=== PATIENT | female | born 1985 | race Caucasian/White ===

== ENCOUNTER 2018-02-07 12:05 | Inpatient (IN) ==
[2018-02-07] MEDS ORDERED: SODIUM CHLORIDE 1,000 ML IV STA ×2 (12:18→15:00)
--- NOTE | 2018-02-07 12:19 | ED.PDOC ---
General ED Provider: Dr. SHAISTA CALVO Chief Complaint: Weakness Stated Complaint: pt called faisal ro in the [facility] pt is homeless Time Seen by Physician: 12:10 (arrived denied suicidal, homocida ideation) Information Source: Patient Nursing and Triage Documentation Reviewed and Agree: Yes Reviewed sepsis parameters & appropriate labs ordered?: Yes System Inflammatory Response Syndrome: Not Applicable Sepsis Protocol: For patient's 13 years and over: Temp is 96.8 and below OR 101 and greater Pulse >90 BPM Resp >20/minute Acutely Altered Mental Status Are patient's symptoms suggestive of a new infection, such as: -Pneumonia -Skin, Soft Tissue -Endocarditis -UTI -Bone, Joint Infection -Implantable Device -Acute Abdominal Infection -Wound Infection -Meningitis -Blood Stream Catheter Infection -Unknown Psychological Complaint Exam - Psychiatric Complaint/Exam Patient Complains Of: Present: Depression (, homeless,) Onset/Duration: today Symptoms Are: Still present Timing: Constant Episodes Lasting: Weeks Initial Severity: Moderate Current Severity: Moderate Character: Present: Depressed, Fearful, Anxious, Frustrated (no job , no home, no family has 4 children who stay with others , 9th grade education) Aggravating: Reports: Recent stress (had a court day did not appear lived in the [facility] many tick bites ) Associated Signs And Symptoms: Reports: Sleep disturbance, Appetite change. Denies: Hostile, Confused, Hallucinating, Paranoid behavior Related History: Reports: Recent stressors (court case). Denies: Suicidal thoughts, Suicidal plan, Suicidal gestures, Homicidal plan, Homicidal gestures Completed Suicide Risk Factors: None Patient In Custody Of Police: No Social Withdrawal Present: Yes Social Isolation Present: Yes Prior Suicide Attempt: No Injury From Prior Suicide Attempt: No Related Surgical History: Reports: None Patient Uncooperative For Exam: No Mood: Present: Agitated, Anxious Appearance: Present: Clean Thought Process: Present: Logical Insight: Present: Good Danger To Others: No Patient Medically Stable For: Psych evaluation Differential Diagnoses: Depression Review of Systems - Review Of Systems Constitutional: Reports: Malaise, Weakness Eyes: Reports: No symptoms Ears, Nose, Mouth, Throat: Reports: No symptoms Respiratory: Reports: No symptoms Cardiac: Reports: No symptoms GI: Reports: No symptoms : Reports: No symptoms Musculoskeletal: Reports: No symptoms Skin: Reports: No symptoms Neurological: Reports: No symptoms Endocrine: Reports: No symptoms Hematologic/Lymphatic: Reports: No symptoms All Other Systems: Reviewed and Negative Past Medical History - Past Medical History Previously Healthy: Yes Endocrine: Reports: None Cardiovascular: Reports: None Respiratory: Reports: None Hematological: Reports: None Gastrointestinal: Reports: None Genitourinary: Reports: None Neuro/Psych: Reports: None Musculoskeletal: Reports: None Cancer: Reports: None - Surgical History General Surgical History: Reports: None - Family History Family History: Reports: None Physical Exam - Physical Exam Appearance: Well-appearing, No pain distress, Well-nourished Eyes: ALEISHA, EOMI, Conjunctiva clear ENT: Ears normal, Nose normal, Dry mucosa Respiratory: Airway patent, Breath sounds clear, Breath sounds equal, Respirations nonlabored Cardiovascular: RRR, Pulses normal, No rub, No murmur GI/: Soft, Nontender, No masses, Bowel sounds normal, No Organomegaly Musculoskeletal: Normal strength, ROM intact, No edema, No calf tenderness Skin: Warm, Dry (abrasion lower ext) Neurological: Sensation intact, Motor intact, Reflexes intact, Cranial nerves intact, Alert, Oriented Psychiatric: Affect appropriate, Mood appropriate Interpretation - Radiology Interpretation Radiology Interpretation By: Radiologist Radiology Results: No acute changes Re-Evaluation - Re-Evaluation Time of Re-Evaluation: 14:00 Status: Improved Vital Signs Stable: Yes Pain Level: 0 Appearance: NAD Lungs: Clear Skin: Warm and Dry Neuro: Alert and Oriented X3 CV: RRR - Re-Evaluation Time of Re-Evaluation: 16:59 Status: Improved Vital Signs Stable: Yes Pain Level: 0 Appearance: NAD Skin: Warm and Dry Neuro: Alert and Oriented X3 CV: RRR Physician Notification - Case Discussed Physician Notified: estephania Time of Notification: 17:01 Admit To: Inpatient Critical Care Note - Critical Care Note Total Time (mins): 0 Course - Course Hematology/Chemistry: 02/07/18 12:40 02/07/18 12:40 Orders, Labs, Meds: Lab Review 02/07/18 02/07/18 02/07/18 12:30 12:40 12:40 WBC 7.22 RBC 4.23 Hgb 13.4 Hct 39.8 MCV 94.1 MCH 31.7 H MCHC 33.7 RDW Coeff of Adelfo 12.6 Plt Count 316 Immature Gran % (Auto) 0.3 Neut % (Auto) 74.6 Lymph % (Auto) 19.3 [place] % (Auto) 4.0 Eos % (Auto) 1.0 Baso % (Auto) 0.8 Immature Gran # (Auto) 0.0 Neut # (Auto) 5.4 Lymph # (Auto) 1.4 [place] # (Auto) 0.3 L Eos # (Auto) 0.1 Baso # (Auto) 0.1 Puncture Site L rad O2 Saturation 99.0 ABG pH 7.430 ABG pCO2 35.1 ABG pO2 135.0 H ABG HCO3 23.3 ABG Total CO2 24 ABG Base Excess -1 Andres Test + FiO2 % 21.0 Sodium 140 Potassium 3.3 L Chloride 103 Carbon Dioxide 25 Anion Gap 15.3 BUN 21 H Creatinine 1.03 Estimated GFR (MDRD) 63.00 BUN/Creatinine Ratio 20.38 Glucose 84 Lactic Acid Calcium 9.5 Total Bilirubin 1.2 AST 22 ALT 24 Alkaline Phosphatase 83 Total Creatine Kinase CK-MB (CK-2) CK-MB (CK-2) % Troponin I Total Protein 7.0 Albumin 3.6 Globulin 3.4 Albumin/Globulin Ratio 1.06 Procalcitonin Serum , Qual 02/07/18 02/07/18 02/07/18 12:40 12:40 12:40 WBC RBC Hgb Hct MCV MCH MCHC RDW Coeff of Adelfo Plt Count Immature Gran % (Auto) Neut % (Auto) Lymph % (Auto) [place] % (Auto) Eos % (Auto) Baso % (Auto) Immature Gran # (Auto) Neut # (Auto) Lymph # (Auto) [place] # (Auto) Eos # (Auto) Baso # (Auto) Puncture Site O2 Saturation ABG pH ABG pCO2 ABG pO2 ABG HCO3 ABG Total CO2 ABG Base Excess Andres Test FiO2 % Sodium Potassium Chloride Carbon Dioxide Anion Gap BUN Creatinine Estimated GFR (MDRD) BUN/Creatinine Ratio Glucose Lactic Acid 19.5 Calcium Total Bilirubin AST ALT Alkaline Phosphatase Total Creatine Kinase CK-MB (CK-2) CK-MB (CK-2) % Troponin I Total Protein Albumin Globulin Albumin/Globulin Ratio Procalcitonin < 0.05 Serum , Qual Negative 02/07/18 12:40 WBC RBC Hgb Hct MCV MCH MCHC RDW Coeff of Adelfo Plt Count Immature Gran % (Auto) Neut % (Auto) Lymph % (Auto) [place] % (Auto) Eos % (Auto) Baso % (Auto) Immature Gran # (Auto) Neut # (Auto) Lymph # (Auto) [place] # (Auto) Eos # (Auto) Baso # (Auto) Puncture Site O2 Saturation ABG pH ABG pCO2 ABG pO2 ABG HCO3 ABG Total CO2 ABG Base Excess Andres Test FiO2 % Sodium Potassium Chloride Carbon Dioxide Anion Gap BUN Creatinine Estimated GFR (MDRD) BUN/Creatinine Ratio Glucose Lactic Acid Calcium Total Bilirubin AST ALT Alkaline Phosphatase Total Creatine Kinase 164 CK-MB (CK-2) 6.6 H* CK-MB (CK-2) % 4.96881 Troponin I < 0.0100 Total Protein Albumin Globulin Albumin/Globulin Ratio Procalcitonin Serum , Qual Orders Category Date Time Status ABG DRAW REQUEST Stat CARDIO 02/07/18 12:17 Completed EKG-(ED ONLY) Stat CARDIO 02/07/18 12:18 Completed NPO REMINDER: IMAGING ONCE CARE 02/07/18 15:22 Active ED IV/MEDIPORT/POWERPORT .ONCE EMERGENCY 02/07/18 12:18 Active Mental Health Consult [ED MENTAL HEALTH CONSULT] .ONCE EMERGENCY 02/07/18 12: 18 Active ABG Stat LAB 02/07/18 12:30 Completed BLOOD CULTURE (ED ONLY) Stat LAB 02/07/18 12:40 Received CBC W/ AUTO DIFF Stat LAB 02/07/18 12:40 Completed COMPREHENSIVE METABOLIC PANEL Stat LAB 02/07/18 12:40 Completed CREATINE KINASE Stat LAB 02/07/18 12:40 Completed EHRLICHIA DNA, PCR Stat LAB 02/07/18 12:40 Received LACTIC ACID Stat LAB 02/07/18 12:40 Completed LYME, WESTERN BLOT, SERUM Stat LAB 02/07/18 12:40 Received PROCALCITONIN Stat LAB 02/07/18 12:40 Completed SCOOTER MTN SPOTTED FEVER,IgG Stat LAB 02/07/18 12:40 Received SCOOTER MTN SPOTTED FEVER,IgM Stat LAB 02/07/18 12:54 Received SERUM Stat LAB 02/07/18 12:40 Completed TROPONIN I Stat LAB 02/07/18 12:40 Completed URINE DRUG SCREEN (RAPID FOR ED) [DRUG SCREEN, URINE, LAB 02/07/18 12:12 Uncollected RAPID] Stat URINE Stat LAB 02/07/18 12:11 Uncollected 0.9 % Sodium Chloride [Saline Flush] MEDS 02/07/18 12:18 Active 1 syr IVF PRN PRN Sodium Chloride 0.9% [Sodium Chloride] 1,000 ml MEDS 02/07/18 12:18 Discontinued IV BOLUS Sodium Chloride 0.9% [Sodium Chloride] 1,000 ml MEDS 02/07/18 15:[address] CHEST PE PROTOCOL Stat RADS 02/07/18 15:[address] HEAD W/O CONTRAST Stat RADS 02/07/18 15:13 Completed Medications Generic Name Dose Route Start Last Admin Trade Name Freq PRN Reason Stop Dose Admin Sodium Chloride 1 syr 02/07/18 12:18 02/07/18 12:58 Saline Flush IVF 1 syr PRN PRN Administration To flush IV Discontinued Medications Generic Name Dose Route Start Last Admin Trade Name Freq PRN Reason Stop Dose Admin Sodium Chloride 1,000 mls @ 1,000 mls/hr 02/07/18 12:18 02/07/18 12:58 Sodium Chloride IV 02/07/18 13:17 1,000 mls/hr BOLUS STA Administration Sodium Chloride 1,000 mls @ 1,000 mls/hr 02/07/18 15:00 02/07/18 15:00 Sodium Chloride IV 02/07/18 15:59 1,000 mls/hr BOLUS STA Administration Vital Signs: Temp Pulse Resp BP Pulse Ox 02/07/18 12:06 98 F 99 H 16 80/49 L 100 Departure - Departure Time of Disposition: 17:01 Disposition: ADMITTED INPATIENT Discharge Problem: Depression, Dehydration Instructions: Dehydration (ED) Condition: Good Pt referred to PMD for follow-up: Yes IPMP verified?: No Additional Instructions: Please call your Family Physician as soon as possible to schedule a follow-up appointment. Allergies/Adverse Reactions: Allergies No Known Allergies Allergy (Unverified 02/07/18 12:22) Home Medications: Ambulatory Orders 1 [No Reported Medications] 02/07/18 Disposition Discussed With: Patient Discharge Problem: Depression Qualifiers: Depression Type: unspecified Qualified Code(s): F32.9 - Major depressive disorder, single episode, unspecified
[2018-02-07] MEDS ORDERED: ATIVAN IM STA (13:00)
[2018-02-07] MEDS ORDERED: HALDOL IM STA (13:01)
--- NOTE | 2018-02-07 16:31 | CT ---
EXAM: CT BRAIN HISTORY: Headache TECHNIQUE: CT brain without intravenous contrast. 5-mm axial sections with Reformations. COMPARISON: None FINDINGS: Brain is unremarkable without evidence of hemorrhage or large vessel distribution recent ischemic in farction. There is no suggestion of acute hydrocephalus or subdural fluid collection. No mass or ma ss effect. Cranium is within normal limits. Mastoid processes are aerated. The visualized paranasal sinuses a re clear. IMPRESSION: No acute intracranial process.
--- NOTE | 2018-02-07 16:36 | CT ---
EXAM: CT Angiogram Chest. HISTORY: Chest pain. COMPARISON: None available. TECHNIQUE: Multiple axial images of the chest were obtained following intravenous administration of 100 mL of Omnipaque 350, low osmolar. Images were reformatted in the sagittal and coronal plane. 3- D and maximum intensity projection reformatted images were created on an independent workstation. FINDINGS: No lymphadenopathy detected. Heart size is normal. No pericardial effusion detected. No pulmonary arterial filling defects are seen. Subtle bronchial thickening, ground-glass nodules an d centrilobular nodules noted in both lower lobes. A 0.5 cm left lower lobe nodule on axial images 6 6 is likely postinflammatory. No pleural effusion or pneumothorax detected. Limited images of the upper abdomen demonstrate no acute finding. Osseous structures are within norm al limits for the patient's age. IMPRESSION: 1. No evidence for pulmonary embolus. 2. Bilateral lower lobe bronchial thickening, ground-glass nodules and centrilobular nodules suggest airways inflammation.
[2018-02-07] MEDS ORDERED: SODIUM CHLORIDE 1,000 ML IV SCH (17:30)
[2018-02-07 18:35] VITALS: BMI 20.3
[2018-02-07] MEDS: DEXTROSE 5%-LR IV SOLUTION 1,000 ML IV SCH (20:59)
[2018-02-08] MEDS: DEXTROSE 5%-LR IV SOLUTION 1,000 ML IV SCH ×2 (05:43→16:32)
[2018-02-08 15:20] VITALS: TEMP 98.1
[2018-02-08] MEDS ORDERED: TENIVAC IM ONE (15:59)
[2018-02-08] MEDS ORDERED: BOOSTRIX IM ONE (16:15)
[2018-02-08 18:43] VITALS: BP 96/63
--- NOTE | 2018-02-12 11:56 | SSS ---
DATE OF SERVICE: 02/08/18 CHIEF COMPLAINT: Weakness and dizziness. SOURCE OF HISTORY: The patient, notes from triage nurse as well as emergency room M.D. HISTORY: The patient claimed that on 02/07/18, about 5 p.m. she and her off and on boyfriend were at the library. I asked her if the library was open or closed and she said it was closed and so they were outside. She claimed that there was a car that was more or less following them and outside of the library her boyfriend mentioned that he would like to go to the [employer] area. She claimed that she did not want to go and because of the car that was more or less stalking them, she did run towards the [facility] and her boyfriend was following her. She stopped by the [place] and her boyfriend was behind and her boyfriend was standing and she was telling her boyfriend to come towards her. She did not understand where her boyfriend was standing. She decided to run and her boyfriend followed her to the [facility]. Her boyfriend had left so she tried to come back to town and went to an area, a playground for children, and there was a place that was more or less enclosed so she spent the night in that area. The following day she claimed to be very tired and weak but she managed to go and knock on the door of houses but no one answered and so she ended up at a friend' s house and was given some food. She was nervous so the friend gave her Klonopin. She left the house and somebody did see her and volunteered to call the police and when she encountered the police, the police did call an ambulance. She was then brought to [facility]. She was seen by the triage nurse at 1206 p.m. She was seen by the ER doctor at 12:10 p.m. After examination and workup, the patient was felt to be dehydrated and given a bolus of Sodium Chloride 1000 cc/hr and another 1,000 cc in the next hour. The patient was admitted with a diagnosis of dehydration and also depression by the ER M.D. PAST HISTORY: Suicide attempt Depression plus anxiety Substance abuse She had four pregnancies and four children. There are three fathers that are involved with the four children. The past two came from the same father and the first and second child are from two different fathers. FAMILY HISTORY: Mother had thyroid disease. Father has heart problems. Sister had thyroid problems. Other members of the family had some liver problems. She mentioned that her father now lives in [place] with his second . She claims that she does not have any communication with him. SOCIAL HISTORY: The patient was from her last , less than one year ago. She had been moving from place to place. She claimed that she lives with her grandmother and when her grandmother , her aunt kicked her out of the house. She lives with her in-laws. She finally left and found her boyfriend. She now claims to be homeless and lives on a couch at some acquaintances. [place] but claimed that her friend's is trying to have connections with her and so she left. She smokes cigarettes and smokes daily and she shoots Methamphetamine twice a day. She had used it the day before. Old/present records reviewed Office records reviewed. ALLERGIES: NKDA REVIEW OF SYSTEMS: CONSTITUTIONAL: No fever. No chills but is weak but not at the time of my examination. She walked into the room and the ex mother and [id number] were present as well as [facility] financial reporting consultant. They left the room and I did talk to her in the presence of Jess Kong. She related the same problem while we were both in the room. CHIEF GREEN OFFICER: The patient did complain of some dizziness but that more or less has resolved. Denies any headaches or seizure problems. No syncope. VISUAL SYSTEM: Denies any double vision or loss of vision or blurring. AUDITORY: Hearing is good. Denies any tinnitus, pain or drainage on either ear. RESPIRATORY: The patient has cough but not significant. Denies any shortness of breath. CARDIOVASCULAR: The patient denies any chest pain or chest tightness. Denies any sensation of palpitations. GI: Denies any nausea, anorexia. Appetite is good judging at the time when she was eating a sandwich in the room. She denies any dysphagia. : Denies any pain on urination. INTEGUMENT: The patient has multiple red areas, scratches on the lower extremities, some multiple areas of redness in the posterior chest and she claimed to be due to thorns. She has some areas of redness in the right paralumbar about L2 level lateral which was due to tick bite. The patient claimed that it had been there for some time. There are areas on the forearm and arms that were due to maybe mosquito bites as well as ticks and she claimed that she had several tick bites and there are some in the abdominal wall. None of the redness is greater than a half dollar. The patient is scratching all the time. MUSCULOSKELETAL: Denies any significant joint pains. ENDOCRINE: Negative. HEMATOLOGY: Denies any history of prolonged bleeding. PSYCHIATRIC: Responses to questions are appropriate and affect appears to be normal. MEDICATIONS: (PRIOR TO THIS ADMISSION) None PHYSICAL EXAMINATION: GENERAL: 32-year-old female alert and oriented answers questions appropriately. She had multiple areas of skin abrasions, papular eruptions on her entire body. She was admitted because of dehydration and substance abuse and lack of residence. V/S: Vital signs on admission to the floor at 6:15 p.m. showed temperature 98, pulse 67, blood pressure 125/69, respiratory rate 14, oxygen saturation 92 on room air. It was 100% at the emergency room. She weighed 134 lbs, 0.6 ozs. She is 5'8". HEENT: Head is unremarkable. Scalp: No active dermatitis. Face symmetrical and equal with no facial weakness. No tenderness in the frontomaxillary sinus areas to palpation and/or pressure. Eyes: The pupils are equal and reactive to light about 3 mm in size and round. Conjunctivae slightly pale. Sclerae nonicteric. Ears - external canal showed no inflammation on both sides. Tympanic membrane without any redness. Mouth unremarkable. Throat - no inflammation, no exudates, no tumor. Some dental caries on the left lower molar bilateraly. NECK: No adenopathy or adenitis. No bruit. No rigidity. CHEST: Essentially symmetrical and equal with good expansion. No tenderness. There are some red areas in the upper posterior chest which she claims to be due to thorns. LUNGS: Breath sounds are heard on both sides. No rales or wheezing. HEART: Audible and regular with good tones. Not tachycardic. No murmurs. ABDOMEN: Flat, soft with some red areas probably secondary to tick bite mostly in the lower abdomen. No remarkable tenderness. Bowel sounds are active. No masses palpable. EXTERNAL GENITALIA: Not examined. RECTAL: Not performed as well as pelvic. LOWER EXTREMITIES: Essentially symmetrical and equal except for the abrasions that are mostly in the lower legs with some red areas including the thigh. Pedal pulses are present. No significant edema. UPPER EXTREMITIES: Symmetrical and equal again with some papular eruptions. ASSESSMENT: 1. DEHYDRATION, CORRECTED 2. SUBSTANCE ABUSE, METHAMPHETAMINE, INTRAVENOUSLY TWICE A DAY 3. HISTORY OF TICK BITES, MULTIPLE 4. PRURITUS PROBABLY SECONDARY TO #3 OR TO CHIGGER BITES 5. HOMELESS - NO SUPPORT LABS/EKG'S/X-RAY/ECHO/ABG: The patient from the emergency room to the hospital had the following workup: On 02/07/18, CBC showed normal CBC except for slightly elevated MCH at 31.7 and the rest were unremarkable. CBC today showed lower hemoglobin, hematocrit which were normal on presentation to the emergency room, most likely due to hydration. Hemoglobin now is 10.7 from 15.4, hematocrit 32.1 from 39.8. MCV and MCH are essentially the same. Arterial blood gases done in the emergency room are essentially normal except for markedly elevated p02 probably from hyperventilation. The pc02 is 35, pH 7.430, oxygen saturation 99, HC03 23.3, total c02 24, base excess minus 1 and FI02 21%. CMP showed potassium 3.3, BUN 21 , EGFR 63, creatinine 1.03, total CK 164, CK-MB 6.6, troponin less than 0.01, procalcitonin less than 0.05, serum test negative. Toxicology was positive for amphetamine as well as methamphetamines. She also was positive for THC. Repeat CMP today now shows normal REVIEW OF SYSTEMS: (DONE IN THE ER) V/S: The patient's vital signs were stable and the patient had not had any pain in the chest or other places except for the pruritus. GENERAL: The patient was alert and oriented. CARDIOVASCULAR: Negative for cardiac symptoms. Denied any chest pain. GASTROINTESTINAL: She had a good appetite, did eat good at lunch. I walked in while she was eating. Denied any abdominal pain. NEUROLOGIC: Negative. INTEGUMENT: The patient complained of itching. I asked the nurse coordinator, Sushma Rodgers, to look for a place for this patient, a drug rehab referral and found one in [place]. [place] has one bed that is available and the patient will be discharged to that facility sometime today. I had made a Cardiology referral because of the elevated CK-MB; however , this patient had no chest symptoms, no chest pain at all. She denied any abdominal pain or any shortness of breath. The patient did tell me in the afternoon examination about 4 o'clock with Jayashree Vieira that she had removed a tick on her head about the occipital area. I did examine her head with gloves and I could not see any redness in the scalp that may have been the site and did not find anymore tick at all. I had examined the patient also in the presence of Jayashree Vieira and the face is symmetrical and equal and the ears showed no inflammation on both sides. The pupils were equal and reactive to light. The mouth is unremarkable. The neck has no masses, no tenderness and/or rigidity. No bruit. Chest is symmetrical and equal with good expansion. The area has minute redness in the upper chest is present and there are some areas also on the lower back. The breasts were examined in the presence of the nurse and the nipples are not retracted. There is redness in the left side, probably from a bite but there are no dominant masses palpable and the skin appears to be normal. Lungs clear to auscultation on both sides. No rales or wheezing. Heart is audible and regular with good tones, no murmurs. Abdomen is flat, soft with no remarkable tenderness. No guarding. Bowel sounds are active. No masses palpable. There is some red areas mostly in the lower abdomen about the level of the umbilicus and below. Lower extremities have no edema, no tenderness in the calf muscles. Same areas have abrasions and some of them are linear, superficial and some are papular areas which probably are secondary to reaction of the bite. The pedal pulses are present. Upper extremities are symmetrical and equal. The CK was repeated and the total CK now is 108, below the trigger for CK-MB determination. The troponin is essentially the same as yesterday and electrocardiogram shows no acute changes. This patient was not seen by the consulting scutcher tender. This patient however was just discharged since she does not have any symptoms and the troponin has remained essentially the same. The electrocardiogram was normal. The physical exam is negative with cardiopulmonary area. Total CK is now also back to the normal level. This patient was instructed to seek medical attention if she runs a temperature since the tick bite can produce an infection such as [place] Spotted Fever. This would more or less show up one to two weeks from the time of the bite or maybe even earlier. She should go and seek medical attention if the areas in the back or bites are enlarging or if she has any fever. The patient showed good understanding. The patient was discharged from the facility and will be driven to [place] by her [id number]-law. The patient had been calm and never combative while she was in the hospital. FINAL DIAGNOSIS: 1. DEHYDRATION, CORRECTED 2. SUBSTANCE ABUSE METHAMPHETAMINE, INTRAVENOUSLY 3. HOMELESS 4. HISTORY OF TICK BITES 5. CHRONIC TOBACCO USE AND ABUSE PROGNOSIS: GUARDED MTDD
== END 2018-02-08 19:16 | disposition home or self-care (01) | DRG 641 ==
LOC: ED 12:05 → MEDSURG B 17:21
PROVIDERS: ADMIT General Practice; ATTEND General Practice
DX: E86.0 Dehydration (principal); F32.9 Major depressive disorder, single episode, unspecified; R53.1 Weakness; S80.819A Abrasion, unspecified lower leg, initial encounter; F15.10 Other stimulant abuse, uncomplicated; F12.90 Cannabis use, unspecified, uncomplicated; F17.210 Nicotine dependence, cigarettes, uncomplicated; L29.9 Pruritus, unspecified; T14.8XXA Other injury of unspecified body region, initial encounter; W57.XXXA Bitten or stung by nonvenomous insect and other nonvenomous arthropods, initial encounter; Z59.0 Homelessness; Z91.5 Personal history of self-harm
CPT/HCPCS: 36415; 80053; 80074; 80306; 81025; 82550; 82553; 82803; 83605; 84145; 84484; 84703; 85025; 86592; 86617; 86757; 87040; 87389; 87798; 90715; 93005; 93010; 96360; 96361; 99223; 99239; 99284